=== PATIENT | female | born 1970 | race Caucasian/White ===

== ENCOUNTER 2017-07-10 10:04 | Emergency (ER) | payer OTHER, SELFPAY ==
[2017-07-10 10:11] VITALS: BP 160/106; PULSE 101; RESP 20; TEMP 36.9; O2SAT 97; BMI 32.1
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
[2017-07-10 13:06] VITALS: BP 120/80; PULSE 78; RESP 18
== END 2017-07-10 13:06 | disposition home or self-care (01) ==
PROVIDERS: Emergency Provider General Practice; PCP Family Medicine
DX: S81.011A Laceration without foreign body, right knee, initial encounter (principal); W45.8XXA Other foreign body or object entering through skin, initial encounter; Z88.0 Allergy status to penicillin; V87.7XXA Person injured in collision between other specified motor vehicles (traffic), initial encounter; S39.012A Strain of muscle, fascia and tendon of lower back, initial encounter
CPT/HCPCS: 12002; 72100; 73070; 73120; 73562; 99282

== ENCOUNTER 2021-03-31 14:50 | Emergency (ER) | payer BC, SELFPAY ==
[2021-03-31 14:50] VITALS: BP 147/93; PULSE 50; RESP 20; TEMP 36.7; O2SAT 99; BMI 28.7
--- NOTE | 2021-03-31 14:58 | CT_ITS ---
PROCEDURE: CT ABDOMEN PELVIS W CON CLINICAL INDICATION: abdominal pain COMPARISON: No exams were available for comparison TECHNIQUE: IV Contrast: 75ML Isovue 370 Oral Contrast None Axial images obtained with sagittal and coronal reformats. All CT scans at the facility use one or more dose reduction, viz: automated exposure control, ma/kV adjustment per patient size (including targeted exams where dose is matched to indication, i.e. head), or iterative reconstruction technique. FINDINGS: LOWER THORAX: No acute finding ABDOMEN & PELVIS: The hepatic dome is incompletely imaged. A 1 cm hypodensity is present in the left hepatic lobe segment 2 nonspecific. Focal fatty infiltration noted in the fissure for the ligamentum teres area of the liver. There has been a prior cholecystectomy. The spleen, adrenal glands, and pancreas have an unremarkable appearance. No renal calculi. There is moderate left hydronephrosis and proximal hydroureter secondary to a 4 x 1 mm stone in the mid left ureter at the L4 level. There is stranding of the proximal periureteral fat on the left. No intestinal obstruction or free air. There is thickening of the colon from the transverse colon to the distal descending colon and could be due to nondistention or colitis. There are few fluid-filled loops of small bowel in the pelvic region with some scattered air-fluid levels. These loops are nondistended. No evidence of appendicitis or diverticulitis. Mild peripheral enhancement noted involving the uterus at the fundal region left greater than right. This is of uncertain clinical significance. Prior posterior fusion at L3, L4, L5, S1, and S2. There is a disc spacer device at L3-L4. IMPRESSION: 1. 4 mm calculus in the mid aspect of the left ureter causing moderate left hydroureteronephrosis with mild stranding of the proximal ureteral fat. 2. Thickening of the colon involving the transverse and descending colon which could be due to nondistention or colitis. 3. Few fluid-filled loops of small bowel in the pelvic region with some scattered air-fluid levels nonspecific. Dictated by: Javi Patino MD 03/31/2021 16:24 Javi Patino MD in [place] 03/31/2021 16:24
[2021-03-31 15:00] VITALS: BP 151/87; PULSE 50; O2SAT 96
[2021-03-31 15:11] LABS: Basophils # 0.1 K/mm3 (0-0.2); Basophils % 1.2 % (0.1-2.0); Eosinophils # 0.1 K/mm3 (0.0-0.4); Eosinophils % 0.7 % (0.1-12.0); Hematocrit 36.8 % (37.0-47.0); Hemoglobin 12.3 g/dL (12.2-16.2); Lymphocytes # 2.3 K/mm3 (0.7-4.5); Lymphocytes % 26.8 % (10-50); Mean Corpuscular HGB Conc 33.5 g/dL (31.8-35.4); Mean Corpuscular Hemoglobin 30.7 pg (27.0-31.2); Mean Corpuscular Volume 91.6 fl (81-99); Mean Platelet Volume 8.1 fl (7.4-10.4); Monocytes # 0.3 K/mm3 (0.1-1.0); Monocytes % 3.4 % (1.7-9.3); Neutrophils # 5.9 K/mm3 (1.8-7.8); Neutrophils % 67.9 % (37.0-80.0); Platelet Count 290 K/mm3 (142-424); Red Blood Count 4.02 M/mm3 (4.20-5.40); Red Cell Distribution Width 13.4 % (11.5-17.5); White Blood Count 8.8 K/mm3 (4.8-10.8)
[2021-03-31 15:15] LABS: Alanine Aminotransferase 33 U/L (12-78); Albumin Level 4.6 g/dl (3.5-5.0); Albumin/Globulin Ratio 1.5 (1.1-1.8); Alkaline Phosphatase 62 U/L (38-126); Anion Gap 11.5 mEq/L (5-15); Aspartate Amino Transferase 61 U/L (14-36); Bilirubin,Total 0.6 mg/dl (0.2-1.3); Blood Urea Nitrogen 17 mg/dl (7-17); Calcium 9.4 mg/dl (8.4-10.2); Carbon Dioxide 26 mmol/L (22.0-30.0); Chloride 105 mmol/L (98-107); Estimated Glomerular Filt Rate 59 ml/min (>60); GFR (African American) 71 ML/MIN (>60); Glucose 126 mg/dl (74-100); Lipase 71 U/L (23-300); Potassium 3.5 mmoL/L (3.5-5.1); Sodium 139 mmol/L (136-145); Total Protein,Serum 7.6 g/dl (6.3-8.2)
[2021-03-31 15:18] LABS: HCG Qualitative, Serum Negative (Negative)
--- NOTE | 2021-03-31 16:15 | HMH.EDGENADL ---
ED Disposition Clinical Impression: Calculus of kidney Disposition: Home, Self-Care Condition on Discharge: Good Additional Instructions: Return for worsening pain vomiting or any other concerns within 8 hours otherwise follow-up with your primary care physician within the next few days and urology as needed. Prescriptions: Ketorolac Tromethamine [Toradol 10mg tablet] 10 mg PO Q6HP PRN 5 Days #20 tab MDD 40mg/day PRN Reason: Mild Pain Transmission Status: Pending to [facility] # Ondansetron [Zofran 4mg ODT] 4 mg PO TIDP PRN #15 tab PRN Reason: Nausea Transmission Status: Pending to [employer] # Referrals: Provider,Referral, [Primary Care Provider] - - Critical Care Critical Care Time: No Attestation: On 03/31/21, the high probability of a clinically significant, sudden or life threatening deterioration of the following system(s) required my full and direct attention, intervention and personal management. The time I documented below is in addition to time spent performing reported procedures but includes the following listed in this critical care notation. Medical Decision Making - Medical Records Medical records reviewed: Yes: I reviewed the patient's medical records. - Erasmo Inquiry Pt receiving controlled substance: No Vital Signs: 03/31/21 14:50 03/31/21 15:00 03/31/21 17:22 Temperature 98.0 F Temperature Source Oral Pulse Rate 50 L 71 Pulse Rate [Right Radial] 50 L Respiratory Rate 20 16 Blood Pressure 151/87 H 105/86 L Blood Pressure [Right Arm] 147/93 H Blood Pressure Mean [Right Arm] 111 Blood Pressure Source Automatic Cuff Blood Pressure Source [Right Arm] Automatic Cuff Blood Pressure Position Sitting Blood Pressure Position [Right Arm] Left Lateral 02 Sat by Pulse Oximetry 99 96 98 Oxygen Delivery Method Room Air Room Air - Lab Data Lab Results 03/31/21 14:56: WBC 8.8, RBC 4.02 L, Hgb 12.3, Hct 36.8 L, MCV 91.6, MCH 30.7, MCHC 33.5, RDW 13.4, Plt Count 290, MPV 8.1, Neut % (Auto) 67.9, Lymph % (Auto) 26.8, [place] % (Auto) 3.4, Eos % (Auto) 0.7, Baso % (Auto) 1.2, Neut # (Auto) 5.9, Lymph # (Auto) 2.3, [place] # (Auto) 0.3, Eos # (Auto) 0.1, Baso # (Auto) 0.1 03/31/21 14:56: Sodium 139, Potassium 3.5, Chloride 105, Carbon Dioxide 26, Anion Gap 11.5, BUN 17, Creatinine 1.00, Estimated GFR 59, Est GFR ( Amer) 71, Glucose 126 H, Calcium 9.4, Total Bilirubin 0.6, AST 61 H, ALT 33, Alkaline Phosphatase 62, Total Protein 7.6, Albumin 4.6, Globulin 3.0, Albumin/Globulin Ratio 1.5, Lipase 71 03/31/21 14:56: Serum HCG, Qual Negative 03/31/21 16:45: Urine Color Yellow, Urine Appearance Sl cloudy, Urine pH 6.5, Ur Specific [place] 1.015, Urine Protein Negative, Urine Glucose (UA) Negative, Urine Ketones Trace, Urine Blood 3+, Urine Nitrate Negative, Urine Bilirubin Negative, Urine Urobilinogen 0.2, Ur Leukocyte Esterase Negative, Urine RBC 20-50, Urine WBC 10-20, Ur Squamous Epith Cells Occasional, Urine Bacteria Trace Result diagrams: 03/31/21 14:56 03/31/21 14:56 Orders (Tests/Meds): ED MEDICATIONS Discontinued Medications Generic Name Dose Route Start Last Admin Trade Name Freq PRN Reason Stop Dose Admin Sodium Chloride 1,000 mls @ 999 mls/hr 03/31/21 15:00 03/31/21 15:07 Sod Chlor 0.9% 1000ml Bag IV 03/31/21 16:00 999 mls/hr .Q1H1M CONCETTA Administration Iopamidol 75 ml 03/31/21 15:43 03/31/21 15:44 Iopamidol-370 (76%);100ml Bottle IV 03/31/21 15:44 75 ml ONCE ONE Administration Morphine Sulfate 4 mg 03/31/21 14:58 03/31/21 15:07 Morphine 4mg/Ml Syringe IV 03/31/21 14:59 4 mg ONCE ONE Administration Ondansetron HCl 4 mg 03/31/21 14:58 03/31/21 15:07 Ondansetron 4mg/2ml Vial IV 03/31/21 14:59 4 mg ONCE ONE Administration Sodium Chloride 10 ml 03/31/21 15:43 03/31/21 15:44 Sodium Chloride 0.9% 10ml Syr (Rad Only) IV 03/31/21 15:44 10 ml ONCE ONE Administration
[2021-03-31 17:17] LABS: Microscopic, Urine URINE MICROSCOPIC (MICROSCOPIC)
[2021-03-31 17:20] LABS: Appearance,Urine SL CLOUDY (Clear); Bilirubin,Urine Negative (Negative); Blood, Urine 3+ (Negative); Color,Urine YELLOW (Yellow); Glucose,Urine (UA) Negative (Negative); Ketones,Urine TRACE (Negative); Leukocyte Esterase,Urine Negative (Negative); Nitrate,Urine Negative (Negative); PH,Urine 6.5 (5.0-8.5); Protein,Urine Negative (Negative); Specific Gravity, Urine 1.015 (1.005-1.030); Urobilinogen,Urine 0.2 EU/dl (0.2)
[2021-03-31 17:22] VITALS: BP 105/86; PULSE 71; RESP 16; O2SAT 98
[2021-03-31 17:30] LABS: Bacteria,Urine Trace /lpf; RBC,Urine 20-50 #/hpf (0-3); Squamous Epithelial Cell,Urine Occasional #/hpf (0-5)
[2021-03-31 17:53] VITALS: BP 110/60; PULSE 70; RESP 16; TEMP 36.8; O2SAT 98
== END 2021-03-31 17:58 | disposition home or self-care (01) ==
PROVIDERS: Emergency Provider Emergency Medicine
DX: N20.0 Calculus of kidney (principal)
CPT/HCPCS: 74177; 80053; 81001; 83690; 84703; 85025; 87086; 87088; 87186; 96365; 96375; 99283; J2405; Q9967

== ENCOUNTER 2021-05-08 14:03 | Emergency (ER) | payer BC, SELFPAY ==
[2021-05-08] VITALS (7 sets, daily range): BP systolic 113–151; BP diastolic 83–103; PULSE 58–67; RESP 18–22; TEMP 36.9; O2SAT 93–97; BMI 29.1
--- NOTE | 2021-05-08 14:22 | ECG_ITS ---
APPROVED REPORT Exam: Resting ECG HR:69 bpm ECG Measurements Heart Rate 69 AXES SC 168 P 30 QRSd 82 QRS -43 QT 400 T 6 QTc 428 Conclusion Normal sinus rhythm Left axis deviation Septal infarct, age undetermined Abnormal ECG Electronically signed by : Reece Gutierrez MD 05/08/2021 22:13:25
--- NOTE | 2021-05-08 14:32 | XR_ITS ---
PROCEDURE INFORMATION: Exam: XR Chest Exam date and time: 05/08/2021 2:32 PM Age: 50 years old Clinical indication: Pain; Chest pressure; Additional info: Cough - chest pain TECHNIQUE: Imaging protocol: XR of the chest. Views: 1 view. COMPARISON: CT ABDOMEN PELVIS W CON 03/31/2021 3:36 PM FINDINGS: Lungs: No significant airspace disease. Pleural spaces: No pleural effusion. Heart/Mediastinum: Cardiac silhouette upper limits of normal size. Diaphragm: Asymmetric elevation of the right hemidiaphragm. Bones/joints: Degenerative change. IMPRESSION: No significant airspace or pleural disease.
--- NOTE | 2021-05-08 14:41 | HMH.EDPSYCH ---
ED Disposition Clinical Impression: Acute anxiety Disposition: Home, Self-Care Condition on Discharge: Good Instructions: Anxiety Disorders Prescriptions: hydrOXYzine HCL [Hydroxyzine HCl] 25 mg PO BID #10 tab Transmission Status: Pending to [facility] #[id number] Referrals: Reece Perry MD [Primary Care Provider] - [facility] [Other] ( Address: [address] [place] [address] [address], [place] [address] Hours: Closed ? Opens 8AM Mon ) - Critical Care Critical Care Time: No Attestation: On 05/08/21, the high probability of a clinically significant, sudden or life threatening deterioration of the following system(s) required my full and direct attention, intervention and personal management. The time I documented below is in addition to time spent performing reported procedures but includes the following listed in this critical care notation. Medical Decision Making - Medical Records Medical records reviewed: Yes: I reviewed the patient's medical records. - Erasmo Inquiry Pt receiving controlled substance: No Vital Signs: 05/08/21 14:05 Temperature 98.4 F Temperature Source Oral Pulse Rate [Radial] 67 Respiratory Rate 20 Blood Pressure [Right Arm] 140/101 H Blood Pressure Mean [Right Arm] 114 Blood Pressure Position [Right Arm] Sitting 02 Sat by Pulse Oximetry 97 Oxygen Delivery Method Room Air - Lab Data Lab Results 05/08/21 14:46: WBC 7.3, RBC 4.33, Hgb 13.2, Hct 41.0, MCV 94.7, MCH 30.4, MCHC 32.1, RDW 14.1, Plt Count 335, MPV 8.7, Neut % (Auto) 59.7, Lymph % (Auto) 34.8, [place] % (Auto) 3.6, Eos % (Auto) 0.4, Baso % (Auto) 1.5, Neut # (Auto) 4.3, Lymph # (Auto) 2.5, [place] # (Auto) 0.3, Eos # (Auto) 0.0, Baso # (Auto) 0.1 05/08/21 14:46: Troponin I < 0.01, TSH 97.20 H 05/08/21 14:46: Sodium 139, Potassium 4.1, Chloride 103, Carbon Dioxide 28, Anion Gap 12.1, BUN 15, Creatinine 0.80, Estimated Creat Clear 126, Estimated GFR 76, Est GFR ( Amer) 92, Glucose 113 H, Calcium 9.4, Total Bilirubin 0.4, AST 36, ALT 20, Alkaline Phosphatase 68, Total Protein 7.4, Albumin 4.6, Globulin 2.8, Albumin/Globulin Ratio 1.6 Result diagrams: 05/08/21 14:46 05/08/21 14:46 Orders (Tests/Meds): ED MEDICATIONS Generic Name Dose Route Start Last Admin Trade Name Freq PRN Reason Stop Dose Admin Sodium Chloride 10 ml 05/08/21 14:32 05/08/21 14:51 Sodium Chloride 0.9% 10ml Vial IV 06/07/21 14:31 10 ml NEEDED PRN Administration to Dilute Lorazepam inj Discontinued Medications Generic Name Dose Route Start Last Admin Trade Name Freq PRN Reason Stop Dose Admin Lorazepam 1 mg 05/08/21 14:32 05/08/21 14:50 Lorazepam 2mg/Ml Vial IV 05/08/21 14:33 1 mg ONCE ONE Administration ORDERS Category Date Time Status Troponin I Q3H Lab 05/08/21 17:45 Ordered Troponin I Q3H Lab 05/08/21 20:45 Ordered - Radiology Data #1 Image(s): Chest Image Reviewed: Yes I reviewed the patient's radiology results, Yes I reviewed the patient's radiology image, Yes I have reviewed radiologist's interpretation Preliminary Findings: Normal/NAD - ECG Data Tracing #1 I reviewed this ECG and interpreted as documented below: Normal ventricular rate of 69 bpm, ND interval 160 ms. Normal QTC. Sinus rhythm with nonspecific changes ECG initial impression date: 05/08/21 ECG initial impression time: 14:22 - Reevaluation(s) Time: 15:54 Reevaluation #1: On reevaluation, the patient is feeling much better. She is much less anxious. Work-up was relatively benign. Patient's TSH was slightly elevated, however she does have history of hypothyroid disorder. She has been noncompliant with her medications. Patient is from [place] town. I did stress to her the importance of obtaining routine and regular psychiatric follow-up. She will be provided some resources. Patient was given strict return precautions. Needs repeat examination withi
[2021-05-08 14:56] LABS: Basophils # 0.1 K/mm3 (0-0.2); Basophils % 1.5 % (0.1-2.0); Eosinophils % 0.4 % (0.1-12.0); Hemoglobin 13.2 g/dL (12.2-16.2); Lymphocytes # 2.5 K/mm3 (0.7-4.5); Lymphocytes % 34.8 % (10-50); Mean Corpuscular HGB Conc 32.1 g/dL (31.8-35.4); Mean Corpuscular Hemoglobin 30.4 pg (27.0-31.2); Mean Corpuscular Volume 94.7 fl (81-99); Mean Platelet Volume 8.7 fl (7.4-10.4); Monocytes # 0.3 K/mm3 (0.1-1.0); Monocytes % 3.6 % (1.7-9.3); Neutrophils # 4.3 K/mm3 (1.8-7.8); Neutrophils % 59.7 % (37.0-80.0); Platelet Count 335 K/mm3 (142-424); Red Blood Count 4.33 M/mm3 (4.20-5.40); Red Cell Distribution Width 14.1 % (11.5-17.5); White Blood Count 7.3 K/mm3 (4.8-10.8)
[2021-05-08 15:09] LABS: Chloride 103 mmol/L (98-107)
[2021-05-08 15:10] LABS: Potassium 4.1 mmoL/L (3.5-5.1); Sodium 139 mmol/L (136-145)
[2021-05-08 15:12] LABS: Alanine Aminotransferase 20 U/L (12-78); Albumin Level 4.6 g/dl (3.5-5.0); Albumin/Globulin Ratio 1.6 (1.1-1.8); Alkaline Phosphatase 68 U/L (38-126); Anion Gap 12.1 mEq/L (5-15); Aspartate Amino Transferase 36 U/L (14-36); Bilirubin,Total 0.4 mg/dl (0.2-1.3); Blood Urea Nitrogen 15 mg/dl (7-17); Carbon Dioxide 28 mmol/L (22.0-30.0); Creatinine Clearance Estimated 126 mL/min (50-200); Estimated Glomerular Filt Rate 76 ml/min (>60); GFR (African American) 92 ML/MIN (>60); Globulin 2.8 g/dL (1.3-3.2); Total Protein,Serum 7.4 g/dl (6.3-8.2)
[2021-05-08 15:13] LABS: Calcium 9.4 mg/dl (8.4-10.2); Glucose 113 mg/dl (74-100)
[2021-05-08 15:31] LABS: Troponin I < 0.01 ng/ml (0.00-0.034)
== END 2021-05-08 16:41 | disposition home or self-care (01) ==
PROVIDERS: Emergency Provider Emergency Medicine; PCP Family Medicine
DX: F41.8 Other specified anxiety disorders (principal); Z88.0 Allergy status to penicillin; F43.12 Post-traumatic stress disorder, chronic
CPT/HCPCS: 71045; 80053; 84443; 84484; 85025; 93005; 96374; 99283